=== PATIENT | female | born 1960 | race Caucasian/White ===

== ENCOUNTER 2021-11-28 19:48 | Emergency (ER) | payer BC ==
[2021-11-28] MEDS ORDERED: AMOX TR-K CLV1 EAC4 PO (22:51)
[2021-11-28] MEDS ORDERED: IBUPROFEN800 MG PO (22:51)
[2021-11-28] MEDS ORDERED: BENTYL 20MG TAB20 MG PO (22:51)
[2021-11-28] MEDS ORDERED: ZOFRAN ODT 4 MG4 MG PO (22:51)
== END 2021-11-28 23:23 | disposition home or self-care (01) ==
LOC: ER1 19:48
DX: S70.02XA Contusion of left hip, initial encounter (principal); S30.0XXA Contusion of lower back and pelvis, initial encounter; K57.32 Diverticulitis of large intestine without perforation or abscess without bleeding; Z87.442 Personal history of urinary calculi; W10.9XXA Fall (on) (from) unspecified stairs and steps, initial encounter; Y92.009 Unspecified place in unspecified non-institutional (private) residence as the place of occurrence of the external cause
CPT/HCPCS: 72128; 72131; 72192; 96372; 99283; J2270